=== PATIENT | female | born 1980 | race Caucasian/White ===

== ENCOUNTER 2022-08-05 06:39 | Inpatient (IN) | payer SELFPAY ==
[~2022-08-05] VITALS: Ht 167.6 cm; Wt 63.5 kg
[2022-08-05] MEDS ORDERED: SODIUM CHLORIDE 0.9% 1000ML 1,000 ML IV STA ×2 (06:55→12:29)
[2022-08-05] MEDS ORDERED: ZIPRASIDONE 20 MG VIAL IM PRN (07:00)
[2022-08-05] MEDS ORDERED: LORAZEPAM INJ 2 MG/ML VIAL IM ONE (07:00)
[2022-08-05] MEDS ORDERED: ZIPRASIDONE 20 MG VIAL IM ONE (07:09)
[2022-08-05] MEDS ORDERED: LORAZEPAM INJ 2 MG/ML VIAL ONE (07:09)
[2022-08-05] MEDS ORDERED: DIPHENHYDRAMINE HCL INJ 50 MG/ML VIAL ONE (07:14)
[2022-08-05] MEDS ORDERED: DIPHENHYDRAMINE HCL INJ 50 MG/ML VIAL IM ONE (07:30)
[2022-08-05 07:39] LABS: BASOPHILS # (AUTO) 0.1 (0.0-0.1); BASOPHILS % 0.4 % (0.0-1.0); EOSINOPHILS % 0.2 % (0.0-6.0); HEMATOCRIT 40.3 % (34.2-44.1); HEMOGLOBIN 14.6 g/dL (12.0-16.0); LYMPHOCYTES # (AUTO) 0.9 (1.0-3.2); LYMPHOCYTES % 6.9 % (18.0-39.1); MEAN CORPUSCULAR HEMOGLOBIN 31.1 pg (28-32); MEAN CORPUSCULAR HGB CONC 36.2 g/dL (31-35); MEAN CORPUSCULAR VOLUME 85.7 fL (81-99); MONOCYTES # (AUTO) 0.8 (0.2-0.8); MONOCYTES % 6.6 % (4.4-11.3); NEUTROPHILS # (AUTO) 10.5 (2.1-6.9); NEUTROPHILS % 85.4 % (38.7-80.0); PLATELET COUNT 405 x10e3/uL (140-360); RED CELL DISTRIBUTION WIDTH 11.9 % (11.7-14.4)
[2022-08-05 07:39] LABS: CLARITY,URINE CLOUDY (CLEAR); COLOR,URINE YELLOW (YELLOW); KETONES,URINE NEGATIVE (NEGATIVE); LEUKOCYTE ESTERASE ,URINE NEGATIVE (NEGATIVE); NITRITE,URINE NEGATIVE (NEGATIVE); PROTEIN,URINE DIPSTICK 1+ (NEGATIVE); URINE UROBILINOGEN 0.2 mg/dL (0.2 - 1)
[2022-08-05 07:41] LABS: AMPHETAMINES SCREEN,URINE POSITIVE (NEGATIVE); BENZODIAZEPINES SCREEN,URINE NEGATIVE (NEGATIVE); PHENCYCLIDINE SCREEN,URINE NEGATIVE (NEGATIVE)
[2022-08-05 07:51] LABS: INR 1.02; PROTHROMBIN TIME 13.6 seconds (11.9-14.5)
[2022-08-05 07:52] LABS: PARTIAL THROMBOPLASTIN TIME 22.5 seconds (23.8-35.5)
[2022-08-05 08:08] LABS: BACTERIA,URINE MANY /HPF; EPITHELIAL CELLS,URINE FEW /LPF; RBC,URINE 0-5 /HPF (0-5)
[2022-08-05 08:10] LABS: SALICYLATE < 5.0 mg/dL (0-30)
[2022-08-05 08:11] LABS: ALANINE AMINOTRANSFERASE 18 IU/L (0-55); ALBUMIN 4.9 g/dL (3.5-5.0); ALBUMIN/GLOBULIN RATIO 1.5 (0.8-2.0); ALKALINE PHOSPHATASE 70 IU/L (40-150); ANION GAP 19.3 mmol/L (8-16); BLOOD UREA NITROGEN 10 mg/dL (7-26); BUN/CREATININE RATIO 9 (6-25); CALCIUM 9.7 mg/dL (8.4-10.2); CARBON DIOXIDE 19 mmol/L (22-29); CHLORIDE 102 mmol/L (98-107); CREATINE KINASE 511 IU/L (29-168); CREATININE, SERUM 1.08 mg/dL (0.57-1.11); GLUCOSE 108 mg/dL (74-118); MAGNESIUM 1.8 MG/DL (1.3-2.1); POTASSIUM 3.3 mmol/L (3.5-5.1); SODIUM 137 mmol/L (136-145)
[2022-08-05] MEDS ORDERED: SODIUM CHLORIDE 0.9% 1000ML 1,000 ML ONE (12:23)
[2022-08-05] MEDS ORDERED: ONDANSETRON HCL INJ 2MG/ML 2ML 2 MG/ML VIAL IV PRN (12:30)
[2022-08-05 14:00] VITALS: BP 141/77
[2022-08-05] MEDS: KCL 20MEQ/.9 SOD CHL 1,000 ML IV SCH ×2 (14:22→21:05)
[2022-08-05 16:00] VITALS: BP 141/77
[2022-08-05 16:16] VITALS: BP 141/77
[2022-08-05 19:47] LABS: CREATINE KINASE MB 3.7 ng/mL (0-5.0)
[2022-08-05 20:00] VITALS: BP 142/74
[2022-08-05 20:38] VITALS: BP 142/74
[2022-08-06] VITALS: BP 125/61
[2022-08-06 00:23] LABS: CREATINE KINASE MB 3.5 ng/mL (0-5.0)
[2022-08-06 04:00] VITALS: BP 119/73
[2022-08-06 05:53] LABS: BASOPHILS # (AUTO) 0.1 (0.0-0.1); BASOPHILS % 0.7 % (0.0-1.0); EOSINOPHILS # (AUTO) 0.2 (0.0-0.4); EOSINOPHILS % 2.2 % (0.0-6.0); HEMATOCRIT 33.2 % (34.2-44.1); HEMOGLOBIN 11.3 g/dL (12.0-16.0); LYMPHOCYTES # (AUTO) 1.8 (1.0-3.2); LYMPHOCYTES % 24.6 % (18.0-39.1); MEAN CORPUSCULAR HEMOGLOBIN 30.5 pg (28-32); MEAN CORPUSCULAR VOLUME 89.5 fL (81-99); MONOCYTES # (AUTO) 0.6 (0.2-0.8); MONOCYTES % 7.5 % (4.4-11.3); NEUTROPHILS # (AUTO) 4.8 (2.1-6.9); NEUTROPHILS % 64.6 % (38.7-80.0); PLATELET COUNT 292 x10e3/uL (140-360); RED BLOOD COUNT 3.71 x10e6/uL (3.6-5.1); RED CELL DISTRIBUTION WIDTH 12.7 % (11.7-14.4)
[2022-08-06 06:24] LABS: ALBUMIN/GLOBULIN RATIO 1.3 (0.8-2.0); CALCIUM 7.6 mg/dL (8.4-10.2); CREATININE, SERUM 0.79 mg/dL (0.57-1.11)
[2022-08-06] MEDS ORDERED: DEXTROSE 5%/0.45% SOD CHL 1,000 ML IV SCH (06:45)
[2022-08-06 07:00] LABS: CREATINE KINASE MB 3.1 ng/mL (0-5.0)
[2022-08-06 08:00] VITALS: BP 132/77
[2022-08-06 08:52] VITALS: BP 132/77
[2022-08-06 11:58] VITALS: BP 124/88
[2022-08-06 16:12] VITALS: BP 126/75
[2022-08-06] MEDS ORDERED: ACETAMINOPHEN325 M1 PO (16:17)
[2022-08-06] MEDS ORDERED: VITAMIN C 250250 MG PO (16:17)
[2022-08-06] MEDS ORDERED: ONDANSETRON ODT4 MG PO (16:17)
== END 2022-08-06 16:55 | disposition home or self-care (01) | DRG 897 ==
LOC: ER 07:01 → ERHOLD 12:28 → MED/SURG3 13:54 → OBSVTOIN 08-06 08:27
PROVIDERS: ADMIT Internal Medicine; ATTEND Internal Medicine
DX: F15.151 Other stimulant abuse with stimulant-induced psychotic disorder with hallucinations (principal); F14.150 Cocaine abuse with cocaine-induced psychotic disorder with delusions; E87.6 Hypokalemia; E16.2 Hypoglycemia, unspecified; E86.0 Dehydration; R00.0 Tachycardia, unspecified; Z72.820 Sleep deprivation; F17.210 Nicotine dependence, cigarettes, uncomplicated; Z20.822 Contact with and (suspected) exposure to COVID-19; R94.4 Abnormal results of kidney function studies
CPT/HCPCS: 36415; 70450; 71045; 80053; 80307; 80320; 80329; 81001; 82140; 82550; 82553; 82948; 83735; 84100; 84484; 84702; 85025; 85610; 85730; 87086; 87186; 93005; 94799; 99285; G0378; J0696; J1200; J2060; J3486; J7030